=== PATIENT | male | born 1990 | race Two or more races ===

== ENCOUNTER 2024-06-16 17:28 | Emergency (ER) | payer OTHER, SELFPAY ==
[2024-06-16 17:31] VITALS: BP 147/94; PULSE 96; RESP 16; TEMP 36.5; O2SAT 99; BMI 10.8
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
[2024-06-16] MEDS: IBUPROFEN 600 MG TABLET PO (18:33)
[2024-06-16 19:30] VITALS: BP 124/89; PULSE 86; RESP 16; O2SAT 98
[2024-06-16 20:49] VITALS: BP 130/91; PULSE 71; RESP 16
== END 2024-06-16 20:50 | disposition home or self-care (01) ==
PROVIDERS: Emergency Provider Emergency Medicine
DX: R56.9 Unspecified convulsions (principal); M25.532 Pain in left wrist
CPT/HCPCS: 70450; 73110; 99284; A9270